=== PATIENT | female | born 1970 | race Caucasian/White ===

== ENCOUNTER 2017-10-06 09:25 | Emergency (ER) | payer OTHER ==
[2017-10-06 09:36] VITALS: BP 142/77; PULSE 85; RESP 18; TEMP 98.4; O2SAT 95
--- NOTE | 2017-10-06 09:53 | EDPHY ---
H & P Time Seen by Provider: 10/06/17 09:44 HPI/ROS: CHIEF COMPLAINT: Right elbow pain HISTORY OF PRESENT ILLNESS: 47-year-old female with cirrhosis presents with right elbow pain. Onset of gradually increasing right elbow pain yesterday afternoon. The pain is moderate and persistent. Alleviated with ice last evening. No medications taken. No associated symptoms. No known injury and no fever. No prior history of olecranon bursitis, gout or cellulitis. ROS: No numbness, weakness, bleeding, syncopal episode, other injury. Past Medical/Surgical History: Psoriasis Smoking Status: Never smoked Physical Exam: Alert and oriented, pleasant Extremities: Right elbow-tenderness and swelling over the olecranon bursa, no fluctuance, no pain with range of motion Skin: Intact, psoriatic lesion over the posterior aspect of the elbow in the affected area Neuro: Motor and sensory intact Vascular: Capillary refill brisk distally. Constitutional: Initial Vital Signs Temperature (C) 36.9 C 10/06/17 09:33 Heart Rate 85 10/06/17 09:33 Respiratory Rate 18 10/06/17 09:33 Blood Pressure 142/77 H 10/06/17 09:33 O2 Sat (%) 95 10/06/17 09:33 O2 Delivery Mode Room Air Allergies/Adverse Reactions: BEE STINGS Allergy (Severe, Uncoded 10/06/17 09:32) Anaphylaxis Home Medications: Medication Instructions Recorded Sertraline HCl [Zoloft] 100 mg PO DAILY 02/22/11 Herbals/Supplements -Info Only 1 each PO DAILY 09/04/12 Aspirin 81mg (*) 10/06/17 Cephalexin [Keflex (*)] 500 mg PO TID #30 cap 10/06/17 Medical Decision Making - Diagnostics Imaging Results: X-ray independently reviewed by me reveals no fracture or joint effusion. ED Course/Re-evaluation: This patient presents with olecranon bursitis. The overlying skin is indurated , though there is no drainable fluid at this point. Will place on ibuprofen and Keflex. Immobilize elbow with sling. Return precautions discussed. Differential Diagnosis: Includes though is not limited to gout, joint infection, fracture, abscess - Data Points Medications Given: Discontinued Medications Cephalexin HCl (Keflex) 500 mg PO EDNOW ONE PRN Reason: Protocol Stop: 10/06/17 09:55 Last Admin: 10/06/17 10:06 Dose: 500 mg Ibuprofen (Motrin) 600 mg PO EDNOW ONE Stop: 10/06/17 09:55 Last Admin: 10/06/17 10:06 Dose: 600 mg Departure - Departure Disposition: Home, Routine, Self-Care Clinical Impression: Olecranon bursitis of right elbow Condition: Good Instructions: Elbow Bursitis (ED) Additional Instructions: Ibuprofen 600 mg 3 times daily while the pain persists. Use sling for comfort. Referrals: Boni Soto [Doctor of Osteopathy] - 2-3 days without fail (Followup on Sunday. Return to the ED if symptoms worsen.) Prescriptions: Cephalexin [Keflex (*)] 500 mg PO TID #30 cap
[2017-10-06] MEDS ORDERED: IBUPROFEN 600 MG TAB PO ONE (09:54)
[2017-10-06] MEDS ORDERED: CEPHALEXIN 500 MG CAP PO ONE (09:54)
== END 2017-10-06 10:14 | disposition home or self-care (01) ==
LOC: CED 09:25
DX: M70.21 Olecranon bursitis, right elbow (principal); Z79.82 Long term (current) use of aspirin
CPT/HCPCS: 73080-PO; A4565